=== PATIENT | male | born 1995 | race Caucasian/White ===

== ENCOUNTER 2019-02-16 15:57 | Emergency (ER) | payer OTHER ==
[~2019-02-16] VITALS: Ht 175.3 cm; Wt 76.0 kg
[2019-02-16 19:14] VITALS: BP 125/84
== END 2019-02-16 20:02 | disposition home or self-care (01) ==
LOC: EMS 15:59
DX: L02.31 Cutaneous abscess of buttock (principal); L03.317 Cellulitis of buttock